=== PATIENT | female | born 1955 | race Caucasian/White ===

== ENCOUNTER 2017-06-13 14:11 | Emergency (ER) | payer MEDICARE ==
[~2017-06-13] VITALS: Ht 165.1 cm; Wt 53.0 kg
[2017-06-13] MEDS ORDERED: ATORVASTATIN CA40 MG PO (15:18)
[2017-06-13] MEDS ORDERED: FLUOXETINE HCL40 MG PO (15:18)
[2017-06-13] MEDS ORDERED: CLONAZEPAM1 M1 PO (15:19)
[2017-06-13] MEDS ORDERED: OMEGA 31000 MG PO (15:19)
[2017-06-13] MEDS ORDERED: COREG25 MG PO (15:20)
[2017-06-13 15:21] LABS: INFLUENZA A NONE DETECTED (NONE DETECT); INFLUENZA B NONE DETECTED (NONE DETECT)
[2017-06-13] MEDS ORDERED: ACYCLOVIR400 MG PO (15:21)
[2017-06-13] MEDS ORDERED: SOMA350 MG PO (15:21)
[2017-06-13] MEDS ORDERED: COENZYME Q-10100 MG PO (15:21)
[2017-06-13] MEDS ORDERED: EPIPEN 2-P0.3 MG/0.3 IM (15:22)
[2017-06-13] MEDS ORDERED: AUGMENTIN875TAB PO (15:49)
[2017-06-13 15:50] VITALS: BP 137/84
== END 2017-06-13 15:50 | disposition home or self-care (01) ==
LOC: ED 14:11
PROVIDERS: Emergency Medicine
DX: J32.9 Chronic sinusitis, unspecified (principal); I10 Essential (primary) hypertension; F41.9 Anxiety disorder, unspecified; Z95.0 Presence of cardiac pacemaker

== ENCOUNTER 2017-08-12 12:18 | Emergency (ER) | payer MEDICARE ==
[~2017-08-12] VITALS: Ht 165.1 cm; Wt 53.4 kg
[~2017-08-12 12:18] MED LIST: ACYCLOVIR400 MG PO; ATORVASTATIN CA40 MG PO; AUGMENTIN875TAB PO; CLONAZEPAM1 M1 PO; COENZYME Q-10100 MG PO; COREG25 MG PO; EPIPEN 2-P0.3 MG/0.3 IM; FLUOXETINE HCL40 MG PO; OMEGA 31000 MG PO; SOMA350 MG PO
[2017-08-12 13:25] LABS: HEMATOCRIT 38.9 % (37.0-47.0); HEMOGLOBIN 12.8 g/dl (12.0-16.0); IMMATURE GRANULOCYTES 0.2 % (0.0-1.0); MEAN CELL VOLUME 88.2 fL CALC (80.0-100.0); MEAN CORPUSCULAR HGB CONC 32.9 g/L CALC (32.0-36.0); NEUT# 2.87 thou/uL (2.00-7.15); RED BLOOD COUNT 4.41 mill/uL (4.20-5.60); RED CELL DISTRI WIDTH 14.1 % (11.5-15.5)
[2017-08-12 13:37] LABS: ANION GAP 14 (6-22 (CALC)); BUN 9 mg/dL (8-23); BUN/CREATININE RATIO 11 (12-20 (CALC)); CARBON DIOXIDE 25 mmol/l (22-30); CHLORIDE 97 mmol/l (95-108); CREATININE 0.8 mg/dL (0.5-1.0); GFR > 60 ML/MIN (>=60 (CALC)); GFR FOR AFR.AMER. > 60 ML/MIN (>=60 (CALC)); POTASSIUM 4.5 mmol/l (3.5-5.1); SODIUM 132 mmol/l (137-146)
[2017-08-12] MEDS ORDERED: OXYCONTIN PO (14:03)
[2017-08-12 14:56] LABS: URINE BILIRUBIN - DIPSTICK NEGATIVE (NEGATIVE); URINE BLOOD DIPSTICK NEGATIVE (NEGATIVE); URINE COLOR YELLOW; URINE GLUCOSE - DIPSTICK NEGATIVE (NEGATIVE); URINE KETONE TRACE mg/dL (NEGATIVE); URINE LEUK ESTERASE NEGATIVE (NEGATIVE); URINE NITRITE - DIPSTICK NEGATIVE (Negative); URINE PH 6.5 (4.5-8.0); URINE PROTEIN - DIPSTICK NEGATIVE (NEG-TRACE); URINE SPECIFIC GRAVITY <=1.005; URINE UROBILINOGEN - DIPSTICK 0.2 E.U./dL (0.2)
[2017-08-12 15:37] LABS: URINE CLARITY CLEAR
[2017-08-12 16:00] VITALS: BP 153/79
== END 2017-08-12 16:00 | disposition home or self-care (01) ==
LOC: ED 12:18
PROVIDERS: Family Medicine
DX: R55 Syncope and collapse (principal); Z95.0 Presence of cardiac pacemaker; I10 Essential (primary) hypertension; R42 Dizziness and giddiness; R11.0 Nausea; I95.9 Hypotension, unspecified

== ENCOUNTER 2017-08-23 23:41 | Emergency (ER) | payer MEDICARE ==
[~2017-08-23] VITALS: Ht 165.1 cm; Wt 53.6 kg
[~2017-08-23 23:41] MED LIST changes: +OXYCONTIN PO
[2017-08-24] MEDS ORDERED: IBUPROFEN600 MG PO (02:54)
[2017-08-24 03:10] VITALS: BP 133/90
== END 2017-08-24 03:10 | disposition home or self-care (01) ==
LOC: ED 23:41
DX: S00.03XA Contusion of scalp, initial encounter (principal); I10 Essential (primary) hypertension; F41.9 Anxiety disorder, unspecified; I25.2 Old myocardial infarction; M79.7 Fibromyalgia; W18.30XA Fall on same level, unspecified, initial encounter; Y92.003 Bedroom of unspecified non-institutional (private) residence as the place of occurrence of the external cause; Z95.0 Presence of cardiac pacemaker

== ENCOUNTER 2018-05-12 15:41 | Emergency (ER) | payer MEDICARE ==
[~2018-05-12 15:41] MED LIST changes: +IBUPROFEN600 MG PO
[2018-05-12] MEDS ORDERED: LOSARTAN POT50 MG PO (20:43)
[2018-05-12] MEDS ORDERED: BUPROPION HCL300 MG PO (20:44)
[2018-05-12] MEDS ORDERED: MONTELUKAST SOD10 MG PO (20:44)
[2018-05-12] MEDS ORDERED: CARVEDILOL12.5 MG PO (20:45)
[2018-05-12] MEDS ORDERED: IBUPROFEN600 MG PO (22:08)
== END 2018-05-12 16:05 | disposition left against medical advice (07) ==
LOC: ED 15:41 → LWOBS 16:04
DX: Z91.19 Patient's noncompliance with other medical treatment and regimen (principal)

== ENCOUNTER 2018-05-12 19:47 | Emergency (ER) | payer MEDICARE ==
[~2018-05-12] VITALS: Ht 165.1 cm; Wt 55.0 kg
[2018-05-12] MEDS ORDERED: LOSARTAN POT50 MG PO (20:43)
[2018-05-12] MEDS ORDERED: MONTELUKAST SOD10 MG PO (20:44)
[2018-05-12] MEDS ORDERED: BUPROPION HCL300 MG PO (20:44)
[2018-05-12] MEDS ORDERED: CARVEDILOL12.5 MG PO (20:45)
[2018-05-12 20:54] LABS: HEMATOCRIT 38.6 % (37.0-47.0); HEMOGLOBIN 12.6 g/dl (12.0-16.0); IMMATURE GRANULOCYTES 0.4 % (0.0-5.0); MEAN CELL VOLUME 92.1 fL CALC (80.0-100.0); MEAN CORPUSCULAR HGB 30.1 pG CALC (26.0-32.0); MEAN CORPUSCULAR HGB CONC 32.6 g/L CALC (32.0-36.0); NEUT# 5.41 thou/uL (2.00-7.15); RED BLOOD COUNT 4.19 mill/uL (4.20-5.60); RED CELL DISTRI WIDTH 13.2 % (11.5-15.5)
[2018-05-12 21:07] LABS: ALBUMIN 3.8 g/dL (3.2-5.0); ALKALINE PHOSPHATASE 59 u/l (38-126); ANION GAP 12 (6-22 (CALC)); BILIRUBIN, TOTAL 0.4 mg/dL (0.0-1.4); BUN 11 mg/dL (8-23); BUN/CREATININE RATIO 13 (12-20 (CALC)); CARBON DIOXIDE 28 mmol/l (22-30); CHLORIDE 101 mmol/l (95-108); CREATININE 0.9 mg/dL (0.5-1.0); GFR > 60 ML/MIN (>=60 (CALC)); GFR FOR AFR.AMER. > 60 ML/MIN (>=60 (CALC)); POTASSIUM 3.5 mmol/l (3.5-5.1); SODIUM 137 mmol/l (137-146); TOTAL PROTEIN 6.4 g/dL (6.3-8.2)
[2018-05-12 21:08] LABS: SGOT/AST 56 u/l (9-36)
[2018-05-12] MEDS ORDERED: IBUPROFEN600 MG PO (22:08)
[2018-05-12 22:49] VITALS: BP 160/84
== END 2018-05-12 22:49 | disposition home or self-care (01) ==
LOC: ED 19:47
PROVIDERS: Emergency Medicine
DX: S30.0XXA Contusion of lower back and pelvis, initial encounter (principal); S00.93XA Contusion of unspecified part of head, initial encounter; I10 Essential (primary) hypertension; F41.9 Anxiety disorder, unspecified; I25.2 Old myocardial infarction; M79.7 Fibromyalgia; W08.XXXA Fall from other furniture, initial encounter; Y92.009 Unspecified place in unspecified non-institutional (private) residence as the place of occurrence of the external cause; Z95.0 Presence of cardiac pacemaker; Z91.81 History of falling

== ENCOUNTER 2018-05-13 19:47 | Emergency (ER) | payer MEDICARE ==
[~2018-05-13] VITALS: Ht 165.1 cm; Wt 55.0 kg
[~2018-05-13 19:47] MED LIST changes: +BUPROPION HCL300 MG PO; +CARVEDILOL12.5 MG PO; +LOSARTAN POT50 MG PO; +MONTELUKAST SOD10 MG PO
[2018-05-13 21:05] VITALS: BP 168/99
== END 2018-05-13 21:05 | disposition home or self-care (01) ==
LOC: ED 19:47
DX: S20.211A Contusion of right front wall of thorax, initial encounter (principal); I10 Essential (primary) hypertension; F41.9 Anxiety disorder, unspecified; I25.2 Old myocardial infarction; M79.7 Fibromyalgia; W19.XXXA Unspecified fall, initial encounter; Z91.81 History of falling; Z95.0 Presence of cardiac pacemaker

== ENCOUNTER 2018-05-20 13:34 | Emergency (ER) | payer MEDICARE ==
[~2018-05-20] VITALS: Ht 165.1 cm; Wt 54.5 kg
[2018-05-20 15:15] VITALS: BP 138/88
== END 2018-05-20 15:15 | disposition home or self-care (01) ==
LOC: ED 13:34
DX: M54.9 Dorsalgia, unspecified (principal); G89.29 Other chronic pain; I10 Essential (primary) hypertension; F41.9 Anxiety disorder, unspecified; M79.7 Fibromyalgia; Z95.0 Presence of cardiac pacemaker